=== PATIENT | male | born 1965 | race Caucasian/White ===

== ENCOUNTER → 2016-09-01 | Outpatient (CLI) | payer BC ==
[~2016-09-01] MED LIST: GADOBUTROL 10 ML VIAL IVP ONE
== END ==
LOC: FIMAGING 09:44
PROVIDERS: ATTEND Orthopaedic Surgery
DX: D48.0 Neoplasm of uncertain behavior of bone and articular cartilage (principal)
CPT/HCPCS: A9585

== ENCOUNTER → 2017-10-22 | Outpatient (CLI) | payer BC | LOC: FIMAGING 09:54 | PROVIDERS: ATTEND Orthopaedic Surgery | DX: C49.5 Malignant neoplasm of connective and soft tissue of pelvis (principal); M51.37 Other intervertebral disc degeneration, lumbosacral region | CPT/HCPCS: A9585 ==

== ENCOUNTER → 2017-12-01 | Outpatient (CLI) | payer BC | DX: R61 Generalized hyperhidrosis (principal); M79.1 Myalgia; R76.8 Other specified abnormal immunological findings in serum ==

== ENCOUNTER → 2017-12-09 | Outpatient (CLI) | payer BC | LOC: FIMAGING 08:24 | PROVIDERS: ATTEND Internal Medicine Endocrinology, Diabetes & Metabolism | DX: E05.90 Thyrotoxicosis, unspecified without thyrotoxic crisis or storm (principal) | CPT/HCPCS: 78012; A9516 ==